=== PATIENT | male | born 1950 | race Caucasian/White ===

== ENCOUNTER → 2017-09-23 12:22 | Outpatient (CLI) | payer MEDICARE ==
[2015-04-19 10:33] VITALS: BMI 28.8
[~2017-09-23 12:22] MED LIST: ASPIRIN325 MG PO; ASPIRIN81 MG PO; COLACE100 MG PO; COREG12.5 MG PO; COREG25 MG PO; HEMOCYTE PLUS C1 CAP PO; HYDRALAZINE HC100 MG PO; HYDRALAZINE HCL50 MG PO; LASIX20 MG PO; LIPITOR10 MG PO; LISINOPRIL10 MG PO; LISINOPRIL5 MG PO; NITRO-DUR0.2 MG TRANSDERM; SENOKOT-S TABLE1 TAB PO
== END | disposition home or self-care (01) ==
LOC: D.US 09-22 13:30
DX: I65.23 Occlusion and stenosis of bilateral carotid arteries (principal)

== ENCOUNTER → 2018-12-10 10:18 | Outpatient (CLI) | payer MEDICARE ==
[2015-04-19 10:33] VITALS: BMI 28.8
== END | disposition home or self-care (01) ==
LOC: D.US 10:18
DX: I65.23 Occlusion and stenosis of bilateral carotid arteries (principal)

== ENCOUNTER → 2018-12-18 13:18 | Outpatient (CLI) | payer MEDICARE ==
[2015-04-19 10:33] VITALS: BMI 28.8
[2018-12-18 14:41] LABS: CREATININE - SERUM 2.2 mg/dL (0.6-1.3)
== END | disposition home or self-care (01) ==
LOC: D.CT 12-16 09:00
PROVIDERS: ATTEND Internal Medicine Cardiovascular Disease
DX: I65.23 Occlusion and stenosis of bilateral carotid arteries (principal)

== ENCOUNTER → 2018-12-24 07:52 | Outpatient (CLI) | payer MEDICARE ==
[~2018-12-24] VITALS: Ht 167.6 cm; Wt 84.1 kg
[2018-12-24 09:06] VITALS: Ht 167.6 cm; Wt 84.1 kg
--- NOTE | 2018-12-24 09:12 | NUR ---
0844 IV STARTED IN LEFT WRIST WITH 20G ANGIOCATH. NS RUNNING AT 150CC/HR PER ORDERED.
--- NOTE | 2018-12-24 09:19 | NUR ---
0912 PT REPORTS HAVING CHEST TIGHTNESS FOR A MONTH. NO INCREASE IN TIGHTNESS WITH EXERTION. NO RADIATION TO JAW OR LEFT ARM. NOTIFIED DR BOGGS'S NURSE, ELIZABETH, WHO ORDERED AN EKG.
--- NOTE | 2018-12-24 09:31 | NUR ---
0933 12 LEAD EKG COMPLETED. 929 ELIZABETH NOTIFIED THAT EKG COMPLETED AND IS TO PICK EKG UP TO SHOW DR BOGGS.
--- NOTE | 2018-12-24 11:10 | NUR ---
[address] BOGGS'S NURSE,ELIZABETH. STATES THAT DR. BROWN WILL COME SEE PT AROUND NOON FOR EVALUATION.
--- NOTE | 2018-12-24 14:18 | NUR ---
1335 UNABLE TO VIEW NOTES ENTERED THIS AM. RECAP OF EVENTS THIS AM. PT REPORTED HAVING CHEST TIGHTNESS THAT HAS BEEN INTERMITTENT FOR THE PAST MONTH. DR BOGGS'S NURSE,ELIZABETH, WAS NOTIFIED AND A 12 LEAD EKG WAS ORDERED AND COMPLETED. EKG WAS EVALUATED BY DR. BOGGS WHO SPOKE WITH DR MCKEON. DR. MCKEON CAME TO SEE PT AT NOON AND TOLD PT IT WAS SAFE FOR HIM TO HAVE HIS TEST TODAY AND TO FOLLOWUP WITH HIS [employer]. PT RECEIVED NS 150CC/HR XS4 PRIOR TO CTA. PT IS NOW BACK IN ROOM AFTER CTA. NS RESTARTED AT 150CC/HR AND IS TO RUN FOR THE NEXT 4 HOURS. PT GIVEN A REGULAR TRAY AND A CUP OF COFFEE.
== END | disposition home or self-care (01) ==
LOC: D.OPS 07:52 → D.CT 12:00
PROVIDERS: ATTEND Internal Medicine Cardiovascular Disease
DX: I65.29 Occlusion and stenosis of unspecified carotid artery (principal); Z01.812 Encounter for preprocedural laboratory examination

== ENCOUNTER → 2019-01-05 08:34 | Outpatient (CLI) | payer MEDICARE ==
[2018-12-24 09:06] VITALS: BMI 29.9
--- NOTE | 2019-01-10 10:39 | EC ---
PATIENT:MORE MOLINA DATE OF SERVICE: 01/05/19 SEX: M MEDICAL RECORD: [id number] DATE OF : 48 LOCATION:D[facility] AGE OF PATIENT: 68 ADMISSION DATE: 01/05/19 REFERRING PHYSICIAN: INTERPRETING PHYSICIAN: JAMES LUGO MD ECHOCARDIOGRAM REPORT ECHO CHARGES 4 ECHO COMPLETE Date: 01/05/19 CLINICAL DIAGNOSIS: CAD HX OF CABG,CARDIOMYOPATHY/ANGINA ECHOCARDIOGRAPHIC MEASUREMENTS (adult normal given) AC root (d.<3.7cm) 3.7 cm LV Septum d (<1.2 cm> 1.6 cm Valve Excursion 2.1 cm LV Septum (systole) 1.8 cm Left Atria (s.<4.0cm> 4.0 cm LVPW d(<1.2cm) 1.2 cm RV (d.<2.3cm) 4.1 cm LVPW (sytole) 1.5 cm LV diastole(<5.6CM) 4.3 cm MV E-F(>70mm/sec) cm LV systole 3.2 cm LVOT Diameter 2.1 cm MV exc.(>10mm) 1.4 cm Est.ejection fraction (50-75%) % DOPPLER: LVIT cm/sec A 61.0 cm/sec E 55.0 cm/sec LA cm/sec RVSP 17 mmHg LVOT 89 cm/sec AOP1/2T m/s Asc. Ao 133 cm/sec RVOT 58 cm/sec RA cm/sec PA 100 cm/sec AV Gradient Peak 7.12 mmHg AV Mean 3.51 mmHg AV Area 2.6 cm MV Gradient Peak 1.69 mmHg MV Mean 0.65 mmHg MV Area cm COMMENTS: Relief Operator: Dottie GRIDER Bioinformatician: 3 Dr. Galvin TAPE# PACS Pericardial Effusion N DATE OF SERVICE: 01/05/2019 Adequate 2-D, color-flow and spectral Doppler, and M-mode. LVH is present. LV internal dimensions are normal. Wall motion is normal. EF is greater than or equal to 55%. Aortic valve sclerosis without stenosis by Doppler interrogation. Left atrium is normal at 4.0 cm. Mitral valve shows no prolapse. Mild MR. Right-sided chambers are grossly normal. Trace TR. TRANSINT:[id number] Voice Confirmation ID: [id number] DOCUMENT ID: [id number] ECHOCARDIOGRAM REPORT [id number] MORE MOLINA,JAMES Kim MD at 1039 CC: [id number] DICTATION DATE: 01/07/19 1258 WINDOW REPAIRER: 01/07/19 1356 DEP CLI 01/05/19 [place] [id number]
== END | disposition home or self-care (01) ==
LOC: D.HCCARDIO 08:34
PROVIDERS: ATTEND Internal Medicine Cardiovascular Disease
DX: I25.10 Atherosclerotic heart disease of native coronary artery without angina pectoris (principal)

== ENCOUNTER 2019-02-21 19:46 | Emergency (ER) | payer MEDICARE ==
[2019-02-21 19:54] VITALS: BMI 29.9
[2019-02-21] MEDS ORDERED: THERMOTABS 1 GM1 GM PO (19:56)
[2019-02-21] MEDS ORDERED: ZYLOPRIM100 MG PO (19:56)
[2019-02-21] MEDS ORDERED: LISINOPRIL20 MG PO (19:56)
[2019-02-21] MEDS ORDERED: CATAPRES0.1 MG PO (19:57)
[2019-02-21] MEDS ORDERED: PLAVIX75 MG PO (19:57)
[2019-02-21] MEDS ORDERED: HCTZ25 MG PO (19:57)
[2019-02-21] MEDS ORDERED: LIPITOR10 MG PO (19:57)
[2019-02-21 20:38] LABS: BASOPHILS 1.3 % (0-2); HEMATOCRIT 47.4 % (42.0-54.0); HEMOGLOBIN 16.5 g/dL (13.5-17.5); IMMATURE GRANULOCYTES 0.3 % (0-5); LYMPHOCYTES 27.6 % (15-50); MCH 31.7 pg (26.0-34.0); MCHC 34.8 g/dL (31.0-37.0); MCV 91.2 fL (80.0-100.0); MEAN PLATELET VOLUME 10.4 fL (7.4-10.4); MONOCYTES 6.8 % (2-11); PLATELET COUNT 186 10x3/uL (130-400); RDW 14.6 % (11.5-14.5)
[2019-02-21 20:51] LABS: INR 0.97 (0.85-1.17); PROTIME 12.3 SECONDS (11.6-15.0)
[2019-02-21 20:57] LABS: BILIRUBIN - TOTAL 1.97 mg/dL (0.2-1.3); CALCIUM 8.8 mg/dL (8.5-10.1); CARBON DIOXIDE 23.7 mmol/L (21.0-32.0); CREATININE - SERUM 2.1 mg/dL (0.6-1.3); POTASSIUM - SERUM 3.7 mmol/L (3.5-5.1); PROTEIN - SERUM 7.5 g/dL (6.4-8.2)
[2019-02-21 22:19] VITALS: BP 137/80
== END 2019-02-21 22:20 | disposition home or self-care (01) ==
LOC: D.ER 19:46
PROVIDERS: Family Medicine
DX: R13.10 Dysphagia, unspecified (principal)